=== PATIENT | female | born 1970 | race Caucasian/White ===

== ENCOUNTER 2017-05-20 15:48 | Emergency (ER) | payer MEDICAID, OTHER ==
[2017-05-20] MEDS ORDERED: Sodium Chloride 0.9% 1,000 ML IV ONE (16:00)
--- NOTE | 2017-05-20 16:06 | ED Physician Chart ---
Chief Complaint/HPI - Patient Information Date Seen:: 05/20/17 Time Seen:: 15:50 Chief Complaint:: swelling of lips, palate itching History of Present Illness:: Pt. felt swelling of lips and palatine pruritis about 1300. She has never had allergic rxn. or similar sx's. She took Hue, though this is not one of her usual meds. Speaking full sentences, but feels SOB. Allergies:: Allergies Allergy/AdvReac Type Severity Reaction Status Date / Time No Known Allergies Allergy Verified 05/20/17 15:56 Vitals:: 97% 149/87 76 20 Historian:: Patient LMP:: 5 days ago. Pt. was on hormonal therapy, estrogens, but she discontinued these at the time her period began, per 'sRoxanne instructions. Review of Systems - Review of Systems General/Constitutional: No fever Skin: Rash (facial erythema, perhaps some L upper lip swelling.) Head: No headache ENT: No earache, No sore throat Neck: No neck pain Cardio Vascular: No chest pain, No palpitations (subjectively SOB, but speaking in full sentences.) Pulmonary: SOB GI: No nausea G/U: No dysuria Musculoskeletal: No bone or joint pain Psychiatric: No prior psych history Allergic/Immuno: Urticaria, Angioedema (Facial swelling only with asymmetric lip swelling.) Neurological: No syncope Past Medical History - Past Medical History Past Medical History: No significant medical hx Family History: None Social History: Non Smoker, No Alcohol Surgical History: Cholecystectomy Psychiatricy History: None (Pt. was on estrogen/progestin. Only other med was Omeprazole, though pt. took single Hue) Medication: Reviewed Physical Exam - Physical Examination General/Constitutional: Awake, Well-developed, well-nourished, Alert, GCS 15, Non-toxic appearing (facial erythema. Labial swelling.) Head: Atraumatic Eyes: PERRL, EOMI Skin: Well hydrated, No lymphadenopathy ENMT: TM canals nl, Oropharynx nl Neck: Nontender Respiratory: Nl effort/Exclusion, Clear to Auscultation, No Wheeze/Rhonchi/Rales Cardio Vascular: RRR, No murmur, gallop, rubs GI: No tenderness/rebounding/guarding : No CVA tenderness Extremities: No tenderness or effusion, Full ROM, normal strength in all extremities, No edema Neuro/Psych: Alert/oriented, Normal motor strength, Judgement/insight normal, No focal deficits Labs/Radiology/EKG Results - Lab Results Results: Pt. has good vitals, 97% RA pulse ox. Preg. test neg. 1655: Pt. is feeling much better. 1819: Pt. better. Rash/swelling improved. ED Septic Shock - . Is Septic Shock (SBP<90, OR Lactate>4 mmol\L) present?: No Reassessment (Disposition) - Reassessment Reassessment Condition:: Improved - Diagnosis Diagnosis:: Dx: Acute Allergic Reaction - Aftercare/Follow up Instructions Medication Prescribed:: Rx: Benadryl 50 mg one po tid prn. No driving. Causes drowsiness. Disp. #6. No refill. - Patient Disposition Discharge/Transfer:: Home Condition at Disposition:: Improved ED Discharge Plan - Patient Disposition Admit/Discharge/Transfer: PT DISCHARGED HOME Condition at Disposition: Improved
--- NOTE | 2017-05-21 08:35 | Diagnostic Imaging Report ---
CHEST X-RAY: AP view INDICATION: Shortness of breath COMPARISON: None FINDINGS: Suboptimal lung volumes are seen with bronchovascular crowding. There is no focal consolidation or pleural effusions The heart is normal in size. Degenerative changes of the spine are noted. IMPRESSION: Suboptimal lung volumes and bronchovascular crowding. No focal consolidation identified.
== END 2017-05-20 18:35 | disposition home or self-care (01) ==
LOC: ER 15:48
DX: L29.8 Other pruritus (principal); T45.0X5A Adverse effect of antiallergic and antiemetic drugs, initial encounter; Z90.49 Acquired absence of other specified parts of digestive tract; Y92.89 Other specified places as the place of occurrence of the external cause
CPT/HCPCS: 99285; 96361; 96374; 96375; 93005; 71010; 81025; J3490; J2930; J1200; J7030